=== PATIENT | male | born 2000 | race African-American/Black ===

== ENCOUNTER 2022-07-26 15:06 | Emergency (ER) | payer OTHER ==
[~2022-07-26] VITALS: Ht 172.7 cm; Wt 81.6 kg
[2022-07-26] MEDS ORDERED: RISPERIDONE (15:16)
[2022-07-26] MEDS ORDERED: CLOM50TA18 (15:32)
[2022-07-26] MEDS ORDERED: IBUP-1955 PO (16:14)
--- NOTE | 2022-07-26 16:27 | NUR ---
Measure and adjusted crutches, gave pt crutch training, pt demonstrated knowledge. Instructed pt on wrapping ankle with elastic bandage. Gave pt. RX and d/c instructions, pt. verbalized understanding.
== END 2022-07-26 16:34 | disposition home or self-care (01) ==
LOC: ER 15:10
DX: S93.401A Sprain of unspecified ligament of right ankle, initial encounter (principal); X58.XXXA Exposure to other specified factors, initial encounter; Y93.02 Activity, running; Y92.89 Other specified places as the place of occurrence of the external cause; Y99.1 Military activity; E29.1 Testicular hypofunction; Z79.899 Other long term (current) drug therapy
CPT/HCPCS: 73610; A4663